=== PATIENT | female | born 1960 | race Two or more races ===

== ENCOUNTER 2024-03-05 08:07 | Emergency (ER) | payer OTHER, BC ==
[~2024-03-05] VITALS: Ht 160 cm; Wt 51.7 kg
[2024-03-05] MEDS ORDERED: TRAM1TAB98 PO (10:23)
[2024-03-05] MEDS ORDERED: KETO10TA2 PO (10:23)
== END 2024-03-05 11:33 | disposition home or self-care (01) ==
LOC: ER 08:09
DX: S29.8XXA Other specified injuries of thorax, initial encounter (principal); W18.30XA Fall on same level, unspecified, initial encounter; Y93.89 Activity, other specified; Y92.89 Other specified places as the place of occurrence of the external cause; Z88.2 Allergy status to sulfonamides; Z85.118 Personal history of other malignant neoplasm of bronchus and lung; N20.0 Calculus of kidney; N13.39 Other hydronephrosis